=== PATIENT | female | born 1990 | race African-American/Black ===

== ENCOUNTER 2018-09-25 09:23 | Emergency (ER) | payer OTHER ==
[~2018-09-25] VITALS: Ht 147.3 cm; Wt 69.4 kg
[~2018-09-25 09:23] MED LIST: ADVIL200 M1; CIPRO500 MG PO; CLARITIN10 MG PO; MACROBID 100 M100 M1 PO; MEDROLDOSEPACK PO; MEDROXYPROGESTERONE; PHENERGAN 25 MG25 M1 PO; PREDNISONE 20 M20 MG PO; ZANTAC 150MG T150 MG PO; ZOFRAN ODT4 MG PO
[2018-09-25 10:01] LABS: ABSOLUTE NEUTROPHILS 5.1 thou/uL (1.4-8.2); BASOPHILS 0.3 % (0.0-2.0); EOSINOPHILS 0.8 % (0.0-3.0); HEMATOCRIT 39.8 % (37.0-47.0); HEMOGLOBIN 13.1 gm/dL (12.0-15.0); LYMPHOCYTES 32.5 % (24.0-44.0); MCHC 33.1 g/dL (28.0-37.0); MCV 84.7 fL (80.0-100.0); MONOCYTES 4.8 % (1.0-8.0); PLATELET COUNT 300 thou/uL (150-400); POLYS 61.6 % (36.0-66.0); RDW 14.2 % (10.5-14.5); WBC 8.3 thou/uL (4.0-11.0)
[2018-09-25 10:03] LABS: URINE BILIRUBIN NEGATIVE (Negative); URINE BLOOD NEGATIVE (Negative); URINE CLARITY CLEAR; URINE COLOR YELLOW; URINE GLUCOSE-RANDOM* NEGATIVE (Negative); URINE KETONES NEGATIVE (Negative); URINE LEUKOCYTES-REFLEX NEGATIVE (Negative); URINE NITRITE-REFLEX NEGATIVE (Negative); URINE PROTEIN (DIPSTICK) NEGATIVE (Negative); URINE SPECIFIC GRAVITY >= 1.030 (1.005-1.035); URINE UROBILINOGEN 0.2 E.U./dl (0.2-1.0)
[2018-09-25 10:05] LABS: CALCIUM 10.1 mg/dL (8.5-10.1); CREATININE 0.7 mg/dL (0.6-1.0); POTASSIUM 3.8 mmol/L (3.5-5.1)
[2018-09-25 10:11] LABS: ALBUMIN 3.8 g/dL (3.4-5.0); TOTAL BILIRUBIN 0.3 mg/dL (<0.1-1.0); TOTAL PROTEIN 8.5 g/dL (6.4-8.2)
[2018-09-25] MEDS ORDERED: COLACE100 MG PO (11:14)
[2018-09-25] MEDS ORDERED: PEPCID20 MG PO (11:14)
[2018-09-25 11:24] VITALS: BP 106/69
== END 2018-09-25 11:24 | disposition home or self-care (01) ==
LOC: ER 09:23
PROVIDERS: Physician Assistant
DX: K29.70 Gastritis, unspecified, without bleeding (principal)

== ENCOUNTER 2019-03-11 10:54 | Emergency (ER) | payer OTHER ==
[~2019-03-11] VITALS: Ht 147.3 cm; Wt 69.4 kg
[~2019-03-11 10:54] MED LIST changes: +COLACE100 MG PO; +PEPCID20 MG PO
[2019-03-11 11:32] LABS: URINE BILIRUBIN NEGATIVE (Negative); URINE BLOOD NEGATIVE (Negative); URINE CLARITY CLEAR; URINE COLOR YELLOW; URINE GLUCOSE-RANDOM* NEGATIVE (Negative); URINE KETONES NEGATIVE (Negative); URINE LEUKOCYTES-REFLEX TRACE (Negative); URINE NITRITE-REFLEX NEGATIVE (Negative); URINE PROTEIN (DIPSTICK) NEGATIVE (Negative); URINE SPECIFIC GRAVITY 1.015 (1.005-1.035); URINE UROBILINOGEN 0.2 E.U./dl (0.2-1.0)
[2019-03-11] MEDS ORDERED: FLAGYL500 M1 PO (13:11)
[2019-03-11 13:25] VITALS: BP 115/73
== END 2019-03-11 13:26 | disposition home or self-care (01) ==
LOC: ER 10:54
PROVIDERS: Emergency Medicine
DX: N76.0 Acute vaginitis (principal)

== ENCOUNTER 2020-01-26 19:40 | Emergency (ER) | payer OTHER ==
[~2020-01-26] VITALS: Ht 147.3 cm; Wt 68.0 kg
[~2020-01-26 19:40] MED LIST changes: +FLAGYL500 M1 PO
[2020-01-26] MEDS ORDERED: ADVIL LIQUI-GE200 MG PO (19:51)
[2020-01-26 20:24] LABS: ABSOLUTE NEUTROPHILS 8.1 thou/uL (1.4-8.2); BASOPHILS 0.4 % (0.0-2.0); EOSINOPHILS 0.1 % (0.0-3.0); HEMATOCRIT 38.7 % (37.0-47.0); HEMOGLOBIN 12.8 gm/dL (12.0-15.0); LYMPHOCYTES 22.3 % (24.0-44.0); MCH 28.3 pg (26.0-34.0); MCHC 32.9 g/dL (28.0-37.0); MONOCYTES 4.6 % (1.0-8.0); PLATELET COUNT 289 thou/uL (150-400); POLYS 72.6 % (36.0-66.0); RDW 14.1 % (10.5-14.5); WBC 11.2 thou/uL (4.0-11.0)
[2020-01-26 20:33] LABS: URINE BILIRUBIN NEGATIVE (Negative); URINE BLOOD TRACE (Negative); URINE CLARITY CLEAR; URINE COLOR YELLOW; URINE GLUCOSE-RANDOM* NEGATIVE (Negative); URINE KETONES NEGATIVE (Negative); URINE LEUKOCYTES-REFLEX NEGATIVE (Negative); URINE NITRITE-REFLEX NEGATIVE (Negative); URINE PROTEIN (DIPSTICK) NEGATIVE (Negative); URINE UROBILINOGEN 0.2 E.U./dl (0.2-1.0)
[2020-01-26 20:33] LABS: CALCIUM 9.2 mg/dL (8.5-10.1); CREATININE 0.7 mg/dL (0.6-1.0)
[2020-01-26 20:39] LABS: TOTAL BILIRUBIN 0.4 mg/dL (0.2-1.0); TOTAL PROTEIN 8.6 g/dL (6.4-8.2)
[2020-01-26] MEDS ORDERED: PEPCID20 MG PO (21:03)
[2020-01-26 21:08] VITALS: BP 106/73
== END 2020-01-26 21:09 | disposition home or self-care (01) ==
LOC: ER 19:40
PROVIDERS: Emergency Medicine
DX: R10.13 Epigastric pain (principal); R35.0 Frequency of micturition; M54.5 Low back pain; R10.10 Upper abdominal pain, unspecified; R10.2 Pelvic and perineal pain; R10.30 Lower abdominal pain, unspecified; Z79.899 Other long term (current) drug therapy

== ENCOUNTER 2020-02-20 14:31 | Emergency (ER) | payer OTHER ==
[~2020-02-20] VITALS: Ht 147.3 cm; Wt 68.0 kg
[~2020-02-20 14:31] MED LIST changes: +ADVIL LIQUI-GE200 MG PO
[2020-02-20 18:35] LABS: URINE BILIRUBIN NEGATIVE (Negative); URINE BLOOD NEGATIVE (Negative); URINE CLARITY CLEAR; URINE COLOR YELLOW; URINE GLUCOSE-RANDOM* NEGATIVE (Negative); URINE KETONES 2+ (Negative); URINE LEUKOCYTES-REFLEX NEGATIVE (Negative); URINE NITRITE-REFLEX NEGATIVE (Negative); URINE PROTEIN (DIPSTICK) NEGATIVE (Negative); URINE SPECIFIC GRAVITY 1.015 (1.005-1.035); URINE UROBILINOGEN 0.2 E.U./dl (0.2-1.0)
[2020-02-20 18:37] LABS: ABSOLUTE NEUTROPHILS 5.8 thou/uL (1.4-8.2); BASOPHILS 0.6 % (0.0-2.0); EOSINOPHILS 0.4 % (0.0-3.0); HEMATOCRIT 36.9 % (37.0-47.0); HEMOGLOBIN 12.6 gm/dL (12.0-15.0); LYMPHOCYTES 28.9 % (24.0-44.0); MCH 29.3 pg (26.0-34.0); MCHC 34.1 g/dL (28.0-37.0); MCV 85.8 fL (80.0-100.0); MONOCYTES 6.1 % (1.0-8.0); PLATELET COUNT 307 thou/uL (150-400); RDW 14.4 % (10.5-14.5)
[2020-02-20 18:51] LABS: CALCIUM 8.5 mg/dL (8.5-10.1); CREATININE 0.8 mg/dL (0.6-1.0); MAGNESIUM 1.9 mg/dL (1.8-2.4); POTASSIUM 3.3 mmol/L (3.5-5.1)
[2020-02-20 19:34] VITALS: BP 118/72
== END 2020-02-20 20:00 | disposition home or self-care (01) ==
LOC: ER 14:31
PROVIDERS: Emergency Medicine
DX: R10.13 Epigastric pain (principal); R11.2 Nausea with vomiting, unspecified; M54.5 Low back pain; Z79.899 Other long term (current) drug therapy

== ENCOUNTER 2020-05-27 12:34 | Emergency (ER) | payer OTHER ==
[~2020-05-27] VITALS: Ht 147.3 cm; Wt 62.1 kg
[2020-05-27 12:54] LABS: URINE BILIRUBIN NEGATIVE (Negative); URINE BLOOD NEGATIVE (Negative); URINE CLARITY CLEAR; URINE COLOR YELLOW; URINE GLUCOSE-RANDOM* NEGATIVE (Negative); URINE KETONES TRACE (Negative); URINE LEUKOCYTES-REFLEX NEGATIVE (Negative); URINE NITRITE-REFLEX NEGATIVE (Negative); URINE PROTEIN (DIPSTICK) NEGATIVE (Negative); URINE SPECIFIC GRAVITY >= 1.030 (1.005-1.035); URINE UROBILINOGEN 0.2 E.U./dl (0.2-1.0)
[2020-05-27] MEDS ORDERED: PHENAZOPYRIDIN200 M2 PO (14:13)
[2020-05-27 14:48] VITALS: BP 101/69
== END 2020-05-27 14:49 | disposition home or self-care (01) ==
LOC: ER 12:34
PROVIDERS: Physician Assistant
DX: R30.0 Dysuria (principal); R35.0 Frequency of micturition; M54.5 Low back pain; Z88.8 Allergy status to other drugs, medicaments and biological substances

== ENCOUNTER 2020-11-15 09:20 | Emergency (ER) | payer OTHER ==
[~2020-11-15] VITALS: Ht 147.3 cm; Wt 68.0 kg
[~2020-11-15 09:20] MED LIST changes: +PHENAZOPYRIDIN200 M2 PO
[2020-11-15 10:23] LABS: URINE BILIRUBIN NEGATIVE (Negative); URINE BLOOD NEGATIVE (Negative); URINE CLARITY CLEAR; URINE COLOR YELLOW; URINE GLUCOSE-RANDOM* NEGATIVE (Negative); URINE KETONES NEGATIVE (Negative); URINE LEUKOCYTES-REFLEX NEGATIVE (Negative); URINE NITRITE-REFLEX NEGATIVE (Negative); URINE PROTEIN (DIPSTICK) NEGATIVE (Negative); URINE SPECIFIC GRAVITY 1.025 (1.005-1.035); URINE UROBILINOGEN 0.2 E.U./dl (0.2-1.0)
[2020-11-15] MEDS ORDERED: FLAGYL500 M1 PO (10:42)
[2020-11-15 11:53] VITALS: BP 106/69
== END 2020-11-15 11:53 | disposition home or self-care (01) ==
LOC: ER 09:20
PROVIDERS: Emergency Medicine
DX: R30.0 Dysuria (principal)